=== PATIENT | male | born 1990 | race Caucasian/White ===

== ENCOUNTER 2022-03-13 17:33 | Emergency (ER) | payer SELFPAY ==
[2022-03-13] MEDS ORDERED: Tetracaine HCl/PF 0.5% 4 ML Bottle EYEBOTH ONE (17:45)
[2022-03-13] MEDS ORDERED: Erythromycin Base 0.5% Ophth Oint 1 GM Tube EYEBOTH ONE ×2 (19:47→19:49)
== END 2022-03-13 20:42 | disposition home or self-care (01) ==
LOC: MW.ED 17:33
DX: T15.02XA Foreign body in cornea, left eye, initial encounter (principal)
CPT/HCPCS: 65220; 99283; A9270